=== PATIENT | male | born 1965 | race Caucasian/White ===

== ENCOUNTER 2016-04-15 11:06 | Outpatient (CLI) | payer MEDICAID | END 2016-04-15 11:07 | disposition home or self-care (01) | DX: E11.9 Type 2 diabetes mellitus without complications (principal) ==

== ENCOUNTER 2016-04-29 19:08 | Emergency (ER) | payer MEDICAID ==
[2016-04-29] MEDS ORDERED: OLANZapine ODT 5 MG TABLET TL ONE (22:35)
[2016-04-29] MEDS ORDERED: INSULIN REGULAR HUMAN 100 UNIT/1 ML 10 ML MDV IVP STA (22:35)
[2016-04-29] MEDS ORDERED: LORazepam 0.5 MG TABLET PO STA (22:36)
[2016-04-29] MEDS ORDERED: LORazepam 0.5 MG TABLET ONE (22:43)
[2016-04-29] MEDS ORDERED: INSULIN REGULAR HUMAN 100 UNIT/1 ML 10 ML MDV ONE (22:44)
[2016-04-29] MEDS ORDERED: SODIUM CHLORIDE FLUSH 0.9% 10 ML SYRINGE IVP ONE (23:00)
== END 2016-04-29 23:49 | disposition home or self-care (01) ==
DX: F20.9 Schizophrenia, unspecified (principal); Z91.14 Patient's other noncompliance with medication regimen; I10 Essential (primary) hypertension; Z79.84 Long term (current) use of oral hypoglycemic drugs; Z87.891 Personal history of nicotine dependence; E11.65 Type 2 diabetes mellitus with hyperglycemia; Z79.4 Long term (current) use of insulin
CPT/HCPCS: 36415; 80053; 80306; 80320; 81003; 83690; 85025; 99284; A9270; J1815

== ENCOUNTER 2016-07-04 14:08 | Emergency (ER) | payer MEDICAID ==
[2016-07-04] MEDS ORDERED: SODIUM CHLORIDE 0.9% 1,000 ML IV ONE ×2 (15:07→17:27)
== END 2016-07-04 20:53 | disposition home or self-care (01) ==
DX: E86.0 Dehydration (principal); R53.1 Weakness; J32.0 Chronic maxillary sinusitis; E11.42 Type 2 diabetes mellitus with diabetic polyneuropathy; Z79.84 Long term (current) use of oral hypoglycemic drugs; I10 Essential (primary) hypertension; F20.9 Schizophrenia, unspecified; Z87.891 Personal history of nicotine dependence

== ENCOUNTER 2016-08-10 14:10 | Outpatient (CLI) | payer MEDICAID ==
[2016-08-10 14:48] LABS: ALBUMIN/GLOBULIN RATIO 1.1 (1.0-2.2); BILIRUBIN,TOTAL 0.5 mg/dL (0.2-1.0); CALCIUM 9.5 mg/dL (8.5-10.3); POTASSIUM 4.3 mmol/L (3.5-5.0)
== END 2016-08-10 14:11 | disposition home or self-care (01) ==
LOC: LAB 14:10
PROVIDERS: ATTEND Family Medicine
DX: G45.4 Transient global amnesia (principal)
CPT/HCPCS: 36415; 80053; 82043; 83036

== ENCOUNTER 2016-10-29 10:41 | Outpatient (CLI) | payer MEDICAID ==
[2016-10-29 11:53] LABS: ALBUMIN/GLOBULIN RATIO 1.2 (1.0-2.2); BILIRUBIN,TOTAL 0.5 mg/dL (0.2-1.0); CALCIUM 9.7 mg/dL (8.5-10.3); CREATININE 0.9 mg/dL (0.6-1.2); POTASSIUM 4.4 mmol/L (3.5-5.0); TOTAL PROTEIN 7.2 g/dL (6.7-8.2)
[2016-10-29 12:05] LABS: HEMOGLOBIN A1C 0.98 g/dL
== END 2016-10-29 10:42 | disposition home or self-care (01) ==
LOC: LAB 10:41
PROVIDERS: ATTEND Family Medicine
DX: E11.9 Type 2 diabetes mellitus without complications (principal)
CPT/HCPCS: 36415; 80053; 82043; 83036

== ENCOUNTER 2017-04-15 13:28 | Outpatient (CLI) | payer MEDICAID | END 2017-04-15 13:29 | disposition critical access hospital (66) | LOC: EMS 13:28 | PROVIDERS: ATTEND Surgery | DX: R45.851 Suicidal ideations (principal); Z72.89 Other problems related to lifestyle | CPT/HCPCS: A0425; A0429 ==

== ENCOUNTER 2017-04-15 14:12 | Emergency (ER) | payer MEDICAID ==
[2017-04-15 14:24] VITALS: BP 134/88
--- NOTE | 2017-04-15 14:56 | ED Physician Documentation ---
PD HPI MHE - Stated complaint Stated Complaint: SI - Chief complaint Chief Complaint: MHE - History obtained from History obtained from: Patient, EMS - History of Present Illness Primary symptom: Other (51-year-old gentleman presents by ambulance for potential suicidal ideation. He says that for the last several months he has been having issues with insurance and has not had any of his medications and call Dr. Alvarado's office today to voice his frustrations. In contrast to the nurse's notes he says he is just frustrated and has not made any suicidal statements or had any thoughts of that. He is intoxicated.) Review of Systems Ten Systems: 10 systems reviewed and negative Constitutional: denies: Fever, Chills Cardiac: reports: Reviewed and negative Respiratory: reports: Reviewed and negative PD PAST MEDICAL HISTORY - Past Medical History Past Medical History: Yes Cardiovascular: Hypertension Respiratory: Shortness of breath, Sleep apnea Neuro: Headache/migraine, Peripheral neuropathy, Tremors Endocrine/Autoimmune: Type 2 diabetes GI: GERD HEENT: Chronic vision loss, Chronic hearing loss Psych: Depression, Anxiety, Schizophrenia Musculoskeletal: Chronic back pain - Past Surgical History Past Surgical History: No - Present Medications Home Medications: Ambulatory Orders Medication Instructions Recorded Confirmed Metformin HCl [Metformin HCl ER] 750 mg PO BID 02/04/15 04/29/16 Propranolol ER [Inderal LA] 60 mg PO DAILY 02/04/15 04/29/16 hydroCHLOROthiazide 12.5 mg PO DAILY 02/04/15 04/29/16 [Hydrochlorothiazide] Hydroxyzine Pamoate [Vistaril] 04/29/16 Omeprazole [PriLOSEC] 20 mg PO DAILY 04/29/16 04/29/16 SITagliptin [Januvia] 100 mg PO DAILY 04/29/16 04/29/16 Hydrocodone/Acetaminophen [Vicodin 1 tab ORAL Q4H PRN 07/04/16 07/04/16 5-300 mg Tablet] LORazepam [Ativan] 1 mg ORAL QID PRN 07/04/16 07/04/16 Penicillin Vk 500 mg ORAL Q6H 07/04/16 07/04/16 - Allergies Allergies/Adverse Reactions: Allergies Allergy/AdvReac Type Severity Reaction Status Date / Time No Known Drug Allergies Allergy Verified 07/04/16 14:15 - Social History Does the pt smoke?: No Smoking Status: Never smoker Does the pt drink ETOH?: No Does the pt have substance abuse?: No - Immunizations Immunizations are current?: Yes PD ED PE NORMAL - Vitals Vital signs reviewed: Yes - General General: Alert and oriented X 3, No acute distress, Other (Cogent but slow slurred speech, cooperative though) - HEENT HEENT: PERRL, EOMI - Neck Neck: Supple, no meningeal sign, No bony TTP - Cardiac Cardiac: RRR, No murmur - Respiratory Respiratory: No respiratory distress, Clear bilaterally - Abdomen Abdomen: Normal bowel sounds, Soft, Non tender - Back Back: No CVA TTP, No spinal TTP - Derm Derm: Normal color, Warm and dry - Extremities Extremities: No edema, No calf tenderness / cord - Neuro Neuro: Alert and oriented X 3, Normal speech Eye Opening: Spontaneous Motor: Obeys Commands - Psych Psych: Normal mood, Normal affect Results - Vitals Vitals: Vital Signs - 24 hr 04/15/17 14:20 Temperature 36.9 C Heart Rate 113 H Respiratory 14 Rate Blood Pressure 134/88 H O2 Saturation 96 Oxygen O2 Source Room air - Labs Labs: Laboratory Tests 04/15/17 04/15/17 15:00 15:00 WBC 10.6 RBC 5.24 Hgb 16.1 Hct 46.8 MCV 89.2 MCH 30.7 MCHC 34.5 RDW 17.3 H Plt Count 245 MPV 6.8 L Neut # 6.8 H Lymph # 3.0 Faulk # 0.7 Eos # 0.1 Baso # 0.1 Absolute Nucleated RBC 0.01 Nucleated RBC % 0.1 Sodium 134 L Potassium 3.3 L Chloride 95 L Carbon Dioxide 22 Anion Gap 17.0 H BUN 6 Creatinine 1.2 Estimated GFR (MDRD) 63 L Glucose 161 H Calcium 8.0 L Total Bilirubin 1.0 AST 146 H ALT 106 H Alkaline Phosphatase 86 Total Protein 7.7 Albumin 4.2 Globulin 3.5 Albumin/Globulin Ratio 1.2 Lipase 44 Salicylates < 6.0 Acetaminophen < 10 L Ethyl Alcohol 333.2 PD MEDICAL DECISION MAKING - ED course ED course: 51-year-old gentleman presents without suicidal ideation but with grief reaction surrounding medical issues and lack of insurance. He was observed for several hours given his alcohol intoxication and was persistently not suicidal and repeated questioning. Departure - Departure Disposition: 01 Home, Self Care Clinical Impression: Depressive disorder Alcoholic intoxication Qualifiers: Complication of substance-induced condition: uncomplicated Qualified Code(s): F10.920 - Alcohol use, unspecified with intoxication, uncomplicated Condition: Good Record reviewed to determine appropriate education?: Yes Instructions: ED Depression, ED Alcohol Intoxication Comments: You need to refrain from using alcohol, your liver is being damaged by this and there is evidence of this on your labs today. Return if you are suicidal or need other medical care. Follow-up with your physician.
[2017-04-15 15:15] LABS: BASOPHILS # (AUTO) 0.1 10^3/uL (0.0-0.1); BASOPHILS % (AUTO) 0.8 %; EOSINOPHILS # (AUTO) 0.1 10^3/uL (0.0-0.7); EOSINOPHILS % (AUTO) 0.9 %; HGB - HEMOGLOBIN 16.1 g/dL (14.0-18.0); MEAN CORPUSCULAR HEMOGLOBIN 30.7 pg (27.0-31.0); MEAN CORPUSCULAR HGB CONC 34.5 g/dL (32.0-36.0); MEAN CORPUSCULAR VOLUME 89.2 fL (80.0-94.0); MEAN PLATELET VOLUME 6.8 fL (7.4-11.4); MONOCYTES # (AUTO) 0.7 10^3/uL (0.0-1.0); MONOCYTES % (AUTO) 6.5 %; NEUTROPHILS # (AUTO) 6.8 10^3/uL (1.5-6.6); NEUTROPHILS % (AUTO) 63.8 %; PLT - PLATELET COUNT 245 10^3/uL (130-450); RED BLOOD COUNT 5.24 10^6/uL (4.70-6.10); RED CELL DISTRIBUTION WIDTH 17.3 % (12.0-15.0); WHITE BLOOD COUNT 10.6 x10^3/uL (4.8-10.8)
[2017-04-15 15:41] LABS: ALBUMIN 4.2 g/dL (3.2-5.5); ALBUMIN/GLOBULIN RATIO 1.2 (1.0-2.2); ALKALINE PHOSPHATASE 86 IU/L (42-121); ALT ALANINE AMINOTRANSFERASE 106 IU/L (10-60); AST ASPARTATE AMINOTRANSFERASE 146 IU/L (10-42); BUN - BLOOD UREA NITROGEN 6 mg/dL (6-20); CARBON DIOXIDE - CO2 22 mmol/L (21-32); CHLORIDE 95 mmol/L (101-111); CREATININE 1.2 mg/dL (0.6-1.2); GFR - MDRD 63 (>89); GLUCOSE 161 mg/dL (70-100); LIPASE 44 U/L (22-51); SALICYLATE < 6.0 mg/dL; SODIUM 134 mmol/L (135-145); TOTAL PROTEIN 7.7 g/dL (6.7-8.2)
[2017-04-15 15:45] LABS: ACETAMINOPHEN < 10 ug/mL (10-30)
== END 2017-04-15 17:07 | disposition home or self-care (01) ==
LOC: EDUNIT# → ED 14:12
DX: F32.9 Major depressive disorder, single episode, unspecified (principal); R45.851 Suicidal ideations; F10.129 Alcohol abuse with intoxication, unspecified; I10 Essential (primary) hypertension; E11.42 Type 2 diabetes mellitus with diabetic polyneuropathy; Z79.84 Long term (current) use of oral hypoglycemic drugs; K21.9 Gastro-esophageal reflux disease without esophagitis
CPT/HCPCS: 36415; 80053; 80307; 80320; 80329; 83690; 85025; 99283

== ENCOUNTER 2017-04-16 01:38 | Outpatient (CLI) | payer MEDICAID | END 2017-04-16 01:39 | disposition critical access hospital (66) | LOC: EMS 01:38 | PROVIDERS: ATTEND Surgery | DX: R46.4 Slowness and poor responsiveness (principal); Z72.89 Other problems related to lifestyle | CPT/HCPCS: A0425; A0429 ==

== ENCOUNTER 2017-04-16 02:40 | Inpatient (IN) | payer MEDICAID ==
[2017-04-16] MEDS ORDERED: SODIUM CHLORIDE 0.9% 1,000 ML IV ONE ×4 (02:47→04:31)
--- NOTE | 2017-04-16 02:56 | ED Physician Documentation ---
PD HPI ALTERED MENTAL STATUS - Stated complaint Stated Complaint: ETOH - History obtained from History obtained from: EMS - History of Present Illness Timing - onset: Today Timing - details: Still present Quality / character: Less responsive, Unresponsive Contributing factors: Intoxicated, Substance abuse, Known psych illness Treatment DIRECTOR FINANCIAL ANALYSIS: Accucheck Similar symptoms before: Work up / diagnostics Recently seen: Not recently seen - Additional information Additional information: Patient is a 51 year old obese male with a history of alcohol abuse, diabetes and depression who was brought in by ems for altered mental status. according to ems, someone called in to have the patient checked on (it is unclear who). when they got to the patient's house he was found to be intoxicated. Patient's blood glucose was over 200. While enroute patient "passed out" Upon initial evaluation in the emergency department patient was responsive to pain. Patient was maintaining his airway but likely has sleep apnea. Review of Systems Unable to obtain: Intoxicated PD PAST MEDICAL HISTORY - Past Medical History Cardiovascular: Hypertension Respiratory: Shortness of breath, Sleep apnea Neuro: Headache/migraine, Peripheral neuropathy, Tremors Endocrine/Autoimmune: Type 2 diabetes GI: GERD HEENT: Chronic vision loss, Chronic hearing loss Psych: Depression, Anxiety, Schizophrenia Musculoskeletal: Chronic back pain - Past Surgical History Past Surgical History: No - Present Medications Home Medications: Ambulatory Orders Medication Instructions Recorded Confirmed Metformin HCl [Metformin HCl ER] 750 mg PO BID 02/04/15 04/29/16 Propranolol ER [Inderal LA] 60 mg PO DAILY 02/04/15 04/29/16 hydroCHLOROthiazide 12.5 mg PO DAILY 02/04/15 04/29/16 [Hydrochlorothiazide] Hydroxyzine Pamoate [Vistaril] 04/29/16 Omeprazole [PriLOSEC] 20 mg PO DAILY 04/29/16 04/29/16 SITagliptin [Januvia] 100 mg PO DAILY 04/29/16 04/29/16 Hydrocodone/Acetaminophen [Vicodin 1 tab ORAL Q4H PRN 07/04/16 07/04/16 5-300 mg Tablet] LORazepam [Ativan] 1 mg ORAL QID PRN 07/04/16 07/04/16 Penicillin Vk 500 mg ORAL Q6H 07/04/16 07/04/16 - Allergies Allergies/Adverse Reactions: Allergies Allergy/AdvReac Type Severity Reaction Status Date / Time No Known Drug Allergies Allergy Verified 04/16/17 02:57 - Social History Does the pt smoke?: No Smoking Status: Never smoker Does the pt drink ETOH?: No Does the pt have substance abuse?: No - Immunizations Immunizations are current?: Yes PD ED PE NORMAL - HEENT HEENT: Atraumatic PD ED PE EXPANDED - General General: Disheveled, poorly kept - Respiratory Respiratory: Other (sonorous respirations) - Abdomen Abdomen: Other (obese,umbilical hernia) - Neuro Neuro: Other (minimally responsive) - GCS Eye Opening: To Pain Motor: Localizes to Pain Verbal: Incomprehensible Total: 9 Results - Vitals Vitals: Vital Signs - 24 hr 04/16/17 04/16/17 04/16/17 02:44 03:14 03:30 Temperature 36.3 C L Heart Rate 133 H 131 H 132 H Respiratory 22 24 30 H Rate Blood Pressure 96/76 102/78 77/45 L O2 Saturation 80 L 94 94 04/16/17 04/16/17 04/16/17 03:36 03:47 03:51 Temperature Heart Rate 119 H 118 H Respiratory 28 H Rate Blood Pressure 79/40 L 81/57 L 77/47 L O2 Saturation 91 L 04/16/17 04/16/17 04/16/17 03:54 04:00 04:02 Temperature Heart Rate 113 H 118 H 117 H Respiratory 25 H 27 H Rate Blood Pressure 89/54 L 83/63 L 83/63 L O2 Saturation 97 04/16/17 04/16/17 04/16/17 04:10 04:14 04:28 Temperature Heart Rate 117 H 121 H 124 H Respiratory 30 H 24 18 Rate Blood Pressure 104/55 L 111/60 97/58 L O2 Saturation 97 97 82 L 04/16/17 04/16/17 04/16/17 04:33 04:41 04:48 Temperature Heart Rate 121 H 118 H 118 H Respiratory 25 H 28 H Rate Blood Pressure 82/48 L 93/70 91/66 O2 Saturation 97 98 Oxygen O2 Source Non-rebreather mask - EKG (time done) 0259 Rate: Rate (enter#) (139) Rhythm: Sinus tachycardia [place]: Normal QRS: Normal Ischemia: ST depression Compare to prior EKG: Changed from prior EKG - Labs Labs: Laboratory Tests 04/16/17 04/16/17 04/16/17 02:58 02:58 02:58 WBC 6.5 RBC 4.80 Hgb 14.9 Hct 43.5 MCV 90.7 MCH 31.0 MCHC 34.1 RDW 17.4 H Plt Count 157 MPV 7.1 L Neut # 2.7 Lymph # 3.0 Cottle # 0.6 Eos # 0.1 Baso # 0.0 Absolute Nucleated RBC 0.00 Nucleated RBC % 0.0 Bld Gas Analysis Time Sample Site ABG pH ABG pCO2 ABG pO2 ABG HCO3 ABG Total CO2 ABG O2 Saturation ABG Oximetry Spot Check ABG Base Excess Abdirashid Test O2 Delivery Device O2 Liters/Min Sodium 134 L Potassium 3.1 L Chloride 95 L Carbon Dioxide 21 Anion Gap 18.0 H BUN 10 Creatinine 1.5 H Estimated GFR (MDRD) 49 L Glucose 226 H Lactic Acid Calcium 8.3 L Phosphorus 4.7 H Magnesium 1.6 L Total Bilirubin 0.5 AST 218 H ALT 134 H Alkaline Phosphatase 80 Ammonia 24.5 Total Protein 7.5 Albumin 4.0 Globulin 3.5 Albumin/Globulin Ratio 1.1 Lipase 51 Urine Color Urine Clarity Urine pH Ur Specific [place] Urine Protein Urine Glucose (UA) Urine Ketones Urine Occult Blood Urine Nitrite Urine Bilirubin Urine Urobilinogen Ur Leukocyte Esterase Ur Microscopic Review Urine Culture Comments Salicylates < 6.0 Urine Opiates Screen Ur Oxycodone Screen Urine Methadone Screen Ur Propoxyphene Screen Acetaminophen < 10 L Ur Barbiturates Screen Ur Tricyclics Screen Ur Phencyclidine Scrn Ur Amphetamine Screen U Methamphetamines Scrn U Benzodiazepines Scrn Urine Cocaine Screen U Cannabinoids Screen Ethyl Alcohol 311.1 Serum Ketones 04/16/17 04/16/17 04/16/17 02:58 03:00 03:40 WBC RBC Hgb Hct MCV MCH MCHC RDW Plt Count MPV Neut # Lymph # Cottle # Eos # Baso # Absolute Nucleated RBC Nucleated RBC % Bld Gas Analysis Time 0359 Sample Site LEFT RADIAL ABG pH 7.29 L ABG pCO2 45 ABG pO2 78 L ABG HCO3 20.8 L ABG Total CO2 22.2 ABG O2 Saturation 93 L ABG Oximetry Spot Check 96 ABG Base Excess -5.7 L Abdirashid Test POSITIVE O2 Delivery Device NON REBREATHER MASK O2 Liters/Min 15.00 Sodium Potassium Chloride Carbon Dioxide Anion Gap BUN Creatinine Estimated GFR (MDRD) Glucose Lactic Acid 3.9 H* Calcium Phosphorus Magnesium Total Bilirubin AST ALT Alkaline Phosphatase Ammonia Total Protein Albumin Globulin Albumin/Globulin Ratio Lipase Urine Color YELLOW Urine Clarity CLEAR Urine pH 6.0 Ur Specific [place] 1.015 Urine Protein NEGATIVE Urine Glucose (UA) 250 H Urine Ketones NEGATIVE Urine Occult Blood NEGATIVE Urine Nitrite NEGATIVE Urine Bilirubin NEGATIVE Urine Urobilinogen 0.2 (NORMAL) Ur Leukocyte Esterase NEGATIVE Ur Microscopic Review NOT INDICATED Urine Culture Comments NOT INDICATED Salicylates Urine Opiates Screen NEGATIVE Ur Oxycodone Screen NEGATIVE Urine Methadone Screen NEGATIVE Ur Propoxyphene Screen NEGATIVE Acetaminophen Ur Barbiturates Screen NEGATIVE Ur Tricyclics Screen NEGATIVE Ur Phencyclidine Scrn NEGATIVE Ur Amphetamine Screen NEGATIVE U Methamphetamines Scrn NEGATIVE U Benzodiazepines Scrn NEGATIVE Urine Cocaine Screen NEGATIVE U Cannabinoids Screen NEGATIVE Ethyl Alcohol Serum Ketones 04/16/17 03:58 WBC RBC Hgb Hct MCV MCH MCHC RDW Plt Count MPV Neut # Lymph # Cottle # Eos # Baso # Absolute Nucleated RBC Nucleated RBC % Bld Gas Analysis Time Sample Site ABG pH ABG pCO2 ABG pO2 ABG HCO3 ABG Total CO2 ABG O2 Saturation ABG Oximetry Spot Check ABG Base Excess Abdirashid Test O2 Delivery Device O2 Liters/Min Sodium Potassium Chloride Carbon Dioxide Anion Gap BUN Creatinine Estimated GFR (MDRD) Glucose Lactic Acid Calcium Phosphorus Magnesium Total Bilirubin AST ALT Alkaline Phosphatase Ammonia Total Protein Albumin Globulin Albumin/Globulin Ratio Lipase Urine Color Urine Clarity Urine pH Ur Specific [place] Urine Protein Urine Glucose (UA) Urine Ketones Urine Occult Blood Urine Nitrite Urine Bilirubin Urine Urobilinogen Ur Leukocyte Esterase Ur Microscopic Review Urine Culture Comments Salicylates Urine Opiates Screen Ur Oxycodone Screen Urine Methadone Screen Ur Propoxyphene Screen Acetaminophen Ur Barbiturates Screen Ur Tricyclics Screen Ur Phencyclidine Scrn Ur Amphetamine Screen U Methamphetamines Scrn U Benzodiazepines Scrn Urine Cocaine Screen U Cannabinoids Screen Ethyl Alcohol Serum Ketones NEGATIVE - Rads (name of study) chest x-ray Radiology: Final report received (no acute process appreciated, hypovolemia) PD MEDICAL DECISION MAKING - ED course Complexity details: reviewed old records, reviewed results, re-evaluated patient , considered differential, d/w patient ED course: Patient was seen and examined at bedside. patient was placed on a monitor and was found to be tachycardic and hypotensive and hypoxic. IV access was gained and labs were drawn. Patient was placed on supplemental oxygen. ekg was performed and showed sinus tach. previous notes were reviewed and patient was found to have been in the ED yesterday for alcohol intoxication. Patient became more somnolent but would maintain his oxygenation with a non-rebreather. Patient was treated with a two fluid bolus which help improve his tachycardia and hypotension. Hospitalist was contacted and the case was discussed with her at bedside. It was decided to hold off on intubation as patient's symptoms were likely secondary to alcohol and his blood gas showed good oxygenation without CO2 retention. Patient was admitted to the ICU with two large bore IVs , maps in the 70s and oxygen saturation in the high 90s on a non rebreather. - Critical Care Time(min): 30 Time Includes: Direct patient care, Review records, Reassess patient Data interpretation: ABG, CXR, Prior EKG, Cardiac output Departure - Departure Disposition: 66 [facility] DC/Xfer Clinical Impression: Altered mental status, Hypotension Condition: Critical
[2017-04-16 03:05] LABS: BASOPHILS % (AUTO) 0.6 %; EOSINOPHILS # (AUTO) 0.1 10^3/uL (0.0-0.7); EOSINOPHILS % (AUTO) 1.9 %; HGB - HEMOGLOBIN 14.9 g/dL (14.0-18.0); LYMPHOCYTES % (AUTO) 46.9 %; MEAN CORPUSCULAR HGB CONC 34.1 g/dL (32.0-36.0); MEAN CORPUSCULAR VOLUME 90.7 fL (80.0-94.0); MEAN PLATELET VOLUME 7.1 fL (7.4-11.4); MONOCYTES # (AUTO) 0.6 10^3/uL (0.0-1.0); MONOCYTES % (AUTO) 9.3 %; NEUTROPHILS # (AUTO) 2.7 10^3/uL (1.5-6.6); NEUTROPHILS % (AUTO) 41.3 %; PLT - PLATELET COUNT 157 10^3/uL (130-450); RED CELL DISTRIBUTION WIDTH 17.4 % (12.0-15.0); WHITE BLOOD COUNT 6.5 x10^3/uL (4.8-10.8)
[2017-04-16 03:21] LABS: BILIRUBIN,URINE NEGATIVE (NEGATIVE); GLUCOSE, URINE (UA) 250 mg/dL (NEGATIVE); KETONES,URINE (UA) NEGATIVE (NEGATIVE); LEUKOCYTE ESTERASE, URINE NEGATIVE (NEGATIVE); MUDS CUTOFF CONCENTRATIONS CUTOFF CONC BELOW:; NITRITE,URINE NEGATIVE (NEGATIVE); OCCULT BLOOD,URINE NEGATIVE (NEGATIVE); PROTEIN,URINE NEGATIVE (NEGATIVE); UROBILINOGEN,URINE 0.2 (NORMAL) E.U./dL (NORMAL)
[2017-04-16 03:21] LABS: ALBUMIN/GLOBULIN RATIO 1.1 (1.0-2.2); ALKALINE PHOSPHATASE 80 IU/L (42-121); ALT ALANINE AMINOTRANSFERASE 134 IU/L (10-60); AST ASPARTATE AMINOTRANSFERASE 218 IU/L (10-42); BILIRUBIN,TOTAL 0.5 mg/dL (0.2-1.0); BUN - BLOOD UREA NITROGEN 10 mg/dL (6-20); CALCIUM 8.3 mg/dL (8.5-10.3); CARBON DIOXIDE - CO2 21 mmol/L (21-32); CHLORIDE 95 mmol/L (101-111); CREATININE 1.5 mg/dL (0.6-1.2); GFR - MDRD 49 (>89); GLUCOSE 226 mg/dL (70-100); LIPASE 51 U/L (22-51); MAGNESIUM 1.6 mg/dL (1.7-2.8); PHOSPHORUS 4.7 mg/dL (2.5-4.6); SALICYLATE < 6.0 mg/dL; SODIUM 134 mmol/L (135-145); TOTAL PROTEIN 7.5 g/dL (6.7-8.2)
[2017-04-16 03:25] LABS: ACETAMINOPHEN < 10 ug/mL (10-30)
[2017-04-16 03:28] LABS: CLARITY,URINE CLEAR (CLEAR)
[2017-04-16 03:31] LABS: AMPHETAMINE SCREEN,URINE NEGATIVE (NEGATIVE); BENZODIAZEPINES SCREEN, URINE NEGATIVE (NEGATIVE); COCAINE SCREEN URINE NEGATIVE (NEGATIVE); METHADONE SCREEN, URINE NEGATIVE (NEGATIVE); METHAMPHETAMINES SCREEN, URINE NEGATIVE (NEGATIVE); OPIATE SCREEN, URINE NEGATIVE (NEGATIVE); OXYCODONE SCREEN, URINE NEGATIVE (NEGATIVE); PROPOXYPHENE SCREEN, URINE NEGATIVE (NEGATIVE); TRICYCLIC ANTIDEPRESSANT,URINE NEGATIVE (NEGATIVE)
--- NOTE | 2017-04-16 03:50 | XRAY Report ---
EXAM: CHEST RADIOGRAPHY EXAM DATE: 04/16/2017 03:32 AM. CLINICAL HISTORY: Hypoxia. COMPARISON: 07/04/2016. TECHNIQUE: 1 view. FINDINGS: Lungs/Pleura: Low volumes. No focal opacities evident. No gross pneumothorax or large effusion. Mediastinum: Borderline cardiomegaly. No mediastinal shift. Other: None. IMPRESSION: Hypoventilatory single view chest with borderline cardiomegaly but without definite acute process. [facility] Referring Provider Line: [phone] SITE ID: [id number]
[2017-04-16 04:21] LABS: ABG BASE EXCESS -5.7 mmol/L (-2.0-3.0); ABG HCO3 20.8 mmol/L (22.0-26.0); ABG PCO2 45 mmHg (34-45); ABG PH 7.29 (7.35-7.45); ABG PO2 78 mmHg (80-100); ABG TCO2 22.2 MMOL/L (21.0-29.0)
[2017-04-16 04:22] LABS: ABG OXYGEN SATURATION 93 % (94-98); ALLEN TEST POSITIVE
[2017-04-16] MEDS ORDERED: MAGNESIUM SULFATE 2 GRAM 2 GM/50 ML BAG IV SCH (04:31)
[2017-04-16] MEDS ORDERED: POTASSIUM CHLOR 10 MEQ/100 ML 10 MEQ/100 ML BAG IV SCH (04:32)
[2017-04-16] MEDS ORDERED: SODIUM CHLORIDE FLUSH 0.9% 10 ML SYRINGE IVP PRN (04:36)
[2017-04-16] MEDS ORDERED: ONDANSETRON 4 MG/2 ML VIAL IVP PRN (04:36)
[2017-04-16] MEDS ORDERED: IPRATROPIUM 0.2 MG/ML NEB INH PRN (04:36)
[2017-04-16] MEDS ORDERED: INSULIN REGULAR HUMAN 100 UNIT in SODIUM CHLORIDE 0.9% 100ML 99 ML IV SCH ×2 (05:00→08:30)
[2017-04-16] MEDS ORDERED: SODIUM CHLORIDE 0.9% 1,000 ML IV SCH (05:00)
[2017-04-16 05:16] LABS: CALCIUM 7.1 mg/dL (8.5-10.3); CREATININE 1.3 mg/dL (0.6-1.2)
--- NOTE | 2017-04-16 05:35 | CT Preliminary Report ---
Exam: CT HEAD W/O IMPRESSION: No acute intracranial process. [facility] SITE ID: [id number]
--- NOTE | 2017-04-16 05:38 | CT Report ---
EXAM: CT HEAD EXAM DATE: 04/16/2017 05:21 AM. CLINICAL HISTORY: Altered mental status. COMPARISON: Brain CT from 12/19/2015. TECHNIQUE: Multiaxial CT images were obtained from the foramen magnum to the vertex. Reformats: Coron al. IV contrast: None. In accordance with CT protocol optimization, one or more of the following dose reduction techniques w ere utilized for this exam: automated exposure control, adjustment of mA and/or KV based on patient s ize, or use of iterative reconstructive technique. FINDINGS: Parenchyma: No intraparenchymal hemorrhage. No evidence of mass, midline shift, or CT findings of inf arction. Knott-white differentiation is distinct. Extraaxial Spaces: Normal for age. No subdural or epidural collections identified. Ventricles: Normal in size and position. Sinuses and Orbits: There is mild mucosal thickening in the right maxillary sinus. Mild opacity in th e left petrous apex persists. The orbits are unremarkable. Bones: No evidence of fracture or calvarial defect. IMPRESSION: No acute intracranial process. [facility] Referring Provider Line: [phone] SITE ID: [id number]
[2017-04-16 05:57] LABS: INR 0.9 (0.8-1.2); PT - PROTHROMBIN TIME 10.7 secs (9.9-12.6)
--- NOTE | 2017-04-16 06:07 | HISTORY & PHYSICAL EXAMINATION ---
DATE OF SERVICE: 04/16/2017 Physician: Carrie Jeong MD CHIEF COMPLAINT: Altered mental status, alcohol intoxication and respiratory failure. SOURCE OF HISTORY: Per medical records and per ER report, the patient on admission was obtunded, could not provide a history. HISTORY OF PRESENT ILLNESS: The patient is a 51-year-old, unfortunate, white male with past medical history of obesity, obstructive sleep apnea, hypertension, type 2 diabetes, anxiety, depression and schizophrenia. He also has chronic low back pain. In the past, he had been taking: Lorazepam, Vicodin, Propranolol, Metformin, Januvia and Hydrochlorothiazide. However, recently, about a few months ago, he lost his insurance and could not fill his medications. His primary care physician is Dr. Alvarado. The patient was seen in the ER yesterday on the afternoon of April 15, at which time he complained about depression, possibly suicidal ideation, was found with alcohol intoxication with blood alcohol level around 300. He reported to the ER doctor that he has not taken his medications at least for a month due to insurance issues. He contacted his primary care doctor, voiced his frustration. At the ER, he initially was suicidal; however, later on his mental status was found to be stable enough and he denied suicidal issues. On the evening of 04/15/2017, he was discharged home. Subsequently, in the evening, a third republican check was requested and when the patient sounded with altered speech on the phone, EMS was called to check on him. When EMS arrived, the patient opened the door; however, he looked intoxicated and altered with his mentation. He was drinking apple juice mixed with vodka and he was drinking it from a large bowl. Due to his altered mentation, EMS brought him into the ER. However, during the transfer patient became obtunded and when he arrived to the ER, he was critically ill, had numerous issues. In particular, he was tachycardic with a heart rate around 140. EKG showed sinus tachycardia with rate dependent changes. The patient was initially hypotensive with blood pressure of 80 systolic. After 2 liters normal saline his blood pressure came up to the low 100 range. He was obtunded and required a nonrebreather mask. On that, ABG showed 7.29/44/ 77. Blood alcohol level was above 300. Magnesium was 1.6, potassium was 3.1, creatinine was 1.5, notably baseline creatinine is 0.9. Anion gap was 18, blood glucose was 266. Lactic acid was 3.9. Chest x-ray showed hypoventilation, otherwise unremarkable. Liver function tests were slightly abnormal in the 100-200 range. In particular, AST was 218, ALT was 134. Ammonia level was 24. Toxicology screen was negative for all substances, including Tylenol and salicylate. White blood cell count was normal. Hemoglobin was normal as well. I examined this patient in the ER and discussed his case with the ER physician, Dr. Gregory. At the time I was at the bedside, the patient was on nonrebreather mask. He saturated 97%. Airway protection was borderline and possibility of intubation was discussed. Vital signs were improving, as far as heart rate went down from 140 to 120 and blood pressure increased from 80 to 100 systolic. Neurologically, the patient appeared nonfocal. Did not appear with any musculoskeletal injury. PAST MEDICAL HISTORY 1. Hypertension. 2. Obstructive sleep apnea/obesity hypoventilation. 3. Type 2 diabetes, noninsulin dependent. 4. Neuropathy. 5. Headache/migraine 6. History of tremors, unknown details. 7. Chronic low back pain. 8. Mental health issues including anxiety, depression, and schizophrenia. 9. Recent history of alcohol use. OUTPATIENT MEDICATIONS: Past medications listed in the electronic medical record, which I reviewed and listed at history of present illness. Notably, during the past several weeks to a month, the patient did not take outpatient medications. SOCIAL HISTORY: Recently, the patient had been drinking alcohol. On admission , he was obtunded and I could not obtain further social history. FAMILY HISTORY: The patient could not provide due to altered mental status. REVIEW OF SYMPTOMS: The patient could not provide due to altered mental status. PHYSICAL EXAMINATION VITAL SIGNS: Please see listed above at of present illness. GENERAL: The patient is a well-developed, obese male who was obtunded. NEUROLOGIC: Depressed mental status, obtunded, unresponsive. Airway protection was borderline. The patient was snoring, did have a gag reflex, was neurologically nonfocal. PSYCHIATRIC: Obtunded. RESPIRATORY: Hypoventilation. Respiratory rate between 10 and 15. Maintained oxygen saturation in the high 90s on nonrebreather mask. Airway protection was borderline, as mentioned above, LUNGS: Showed no wheezing, no crackling. There was decreased air entry. ABDOMEN: Obese, distended. With a sizable umbilical hernia. Bowel tones present. No rebound LYMPHATIC: No significant lymphedema. MUSCULOSKELETAL: No obvious injury. SKIN: Macerated skin on the feet. Large toenails. No obvious wound or rash. CARDIOVASCULAR: S1, S2. Regular, tachycardia. I could not hear murmur, rub or gallop. ASSESSMENT AND PLAN/ACTIVE ISSUE/DIAGNOSES 1. Acute alcohol intoxication leading to multiple complications, see below. 2. Encephalopathy/altered mental status/obtunded secondary to mental status depression, with alcohol on board. Notably, there were no other substances. Tox screen was negative. 3. Respiratory failure secondary to alcohol intoxication, currently with borderline airway protection, might need to be intubated. I discussed this issue with the ER physician and we agreed that the patient will be monitored on a nonrebreather mask for another hour or so and if the mental status does not improve or if there is concern with the airway protection, then we will consider intubation. Regarding possible BiPAP, for an obtunded patient, the aspiration risk and distending the stomach with air would be too high of a risk. Therefore, we will try not to use BiPAP. 4. Mixed acid base disorder including metabolic acidosis secondary to lactic acidosis and possible early diabetic ketoacidosis. 5. Hypotension secondary to alcohol intoxication, improving on IV hydration. 6. Sinus tachycardia, multifactorial, secondary to dehydration, could be secondary to withdrawal from multiple medications including beta blockers, opiates or benzodiazepines; however, withdrawal is somewhat less likely as, per the history, the patient likely was not on these medications recently. Still, acute cardiac ischemia will need to be ruled out. Tachycardia could be secondary to dehydration , alcohol intoxication and metabolic abnormalities. 7. History of type 2 diabetes, recently not on medications. Blood glucose is above 200 with a mild anion gap, could be early DKA versus hyperglycemia with lactic acidosis. 8. Acute renal failure. 9. Electrolyte abnormalities including hypomagnesemia and hypokalemia. 10. Abnormal liver function tests, likely secondary to alcohol-induced liver damage. 11. Macerated feet without obvious cellulitis. 12. Mental health problems. PLAN AND ORDERS 1. Patient is getting admitted to the intensive care unit. He will be closely monitored with nonrebreather mask, we will try to switch oxygen delivery to high flow nasal cannula. If mental status does not improve, the patient will likely need to be intubated. 2. We will recheck lactic acid and blood alcohol level. Notably, the patient was still drinking when EMS arrived on the scene. Therefore, it is possible that blood alcohol level is still increasing. If that is the case, then obviously needing to intubate this patient will be even more likely. 3. Regarding hyperglycemia, possible early DKA, we will start insulin drip and monitor laboratories accordingly. 4. Regarding sinus tachycardia, hypotension, and acute renal failure we will continue IV hydration. Monitor urine output via Patricio catheter. 5. Replace electrolytes. 6. Consider a CT scan of the brain to make sure there is no intracranial abnormality. 7. Telemetry monitoring. EKG showed rate-related changes; however, in the setting of alcohol intoxication and multiple other problems, in particular metabolic abnormalities and beta jordan withdrawal as well, the patient could have acute cardiac ischemia. We will check cardiac markers. 8. GI prophylaxis, DVT prophylaxis; for now with Venodyne boots. If the patient remains in the hospital for more than 24 hours, pharmacologic prophylaxis should be considered. 9. Code status is FULL CODE per default. 10. N.p.o., supportive care, respiratory care, small volume nebulizers. ATTESTATION: I certify in good melodie that the reasonable expectation is this patient will be hospitalized for more than 24-48 hours; however, he is expected to discharge within 96 hours to his home or transfer to another facility. TIME SPENT: Critical care time spent with this patient was 1 hour. TD: 04/16/2017 06:07 TERENCE
[2017-04-16 06:10] LABS: ABG HCO3 19.8 mmol/L (22.0-26.0); ABG PCO2 43 mmHg (34-45); ABG PH 7.28 (7.35-7.45); ABG PO2 202 mmHg (80-100)
[2017-04-16 06:11] LABS: ABG BASE EXCESS -6.7 mmol/L (-2.0-3.0); ABG OXYGEN SATURATION 99 % (94-98); ABG TCO2 21.1 MMOL/L (21.0-29.0)
[2017-04-16 06:20] LABS: ALLEN TEST POSITIVE
[2017-04-16] MEDS: SODIUM CHLORIDE FLUSH 0.9% 10 ML SYRINGE IVP SCH ×3 (06:47→22:05)
[2017-04-16] MEDS: POTASSIUM CHLOR 10 MEQ/100 ML 10 MEQ/100 ML BAG IV SCH ×10 (06:49→14:54)
[2017-04-16 08:48] LABS: CALCIUM 7.2 mg/dL (8.5-10.3)
[2017-04-16] MEDS: SODIUM BICARBONATE 100 MEQ in DEXTROSE 5% 1,000 ML IV SCH ×2 (09:30→20:55)
[2017-04-16 10:59] LABS: CALCIUM 7.2 mg/dL (8.5-10.3)
[2017-04-16] MEDS: FAMOTIDINE 20 MG/50 ML 50 ML IV SCH ×2 (13:00→20:57)
[2017-04-16] MEDS: PROPRANOLOL ER 60 MG CAPSULE PO SCH (16:01)
[2017-04-16 16:05] LABS: CALCIUM 7.5 mg/dL (8.5-10.3); CREATININE 0.9 mg/dL (0.6-1.2)
[2017-04-17 05:05] LABS: BASOPHILS % (AUTO) 0.4 %; EOSINOPHILS # (AUTO) 0.3 10^3/uL (0.0-0.7); EOSINOPHILS % (AUTO) 2.7 %; HGB - HEMOGLOBIN 14.1 g/dL (14.0-18.0); LYMPHOCYTES # (AUTO) 1.7 10^3/uL (1.5-3.5); LYMPHOCYTES % (AUTO) 18.4 %; MEAN CORPUSCULAR HGB CONC 34.3 g/dL (32.0-36.0); MEAN CORPUSCULAR VOLUME 90.5 fL (80.0-94.0); MEAN PLATELET VOLUME 6.9 fL (7.4-11.4); MONOCYTES # (AUTO) 0.5 10^3/uL (0.0-1.0); MONOCYTES % (AUTO) 5.5 %; NEUTROPHILS # (AUTO) 6.9 10^3/uL (1.5-6.6); PLT - PLATELET COUNT 154 10^3/uL (130-450); RED BLOOD COUNT 4.54 10^6/uL (4.70-6.10); RED CELL DISTRIBUTION WIDTH 17.7 % (12.0-15.0); WHITE BLOOD COUNT 9.5 x10^3/uL (4.8-10.8)
[2017-04-17 05:53] LABS: ALBUMIN 3.2 g/dL (3.2-5.5); CALCIUM 7.3 mg/dL (8.5-10.3); MAGNESIUM 1.5 mg/dL (1.7-2.8); PHOSPHORUS 2.6 mg/dL (2.5-4.6)
[2017-04-17] MEDS: SODIUM BICARBONATE 100 MEQ in DEXTROSE 5% 1,000 ML IV SCH (06:49)
[2017-04-17] MEDS: SODIUM CHLORIDE FLUSH 0.9% 10 ML SYRINGE IVP SCH (06:49)
[2017-04-17] MEDS ORDERED: MAGNESIUM OXIDE 400 MG TABLET PO SCH (07:00)
[2017-04-17 07:06] LABS: VBG PH 7.485 (7.31-7.41)
--- NOTE | 2017-04-17 07:18 | Discharge Plan ---
Discharge Plan Disposition: Home, Self Care Condition: Stable Prescriptions: Hydrocodone/Acetaminophen [Vicodin 5-300 mg Tablet] 1 tab ORAL Q4H PRN #30 tablet PRN Reason: Pain Omeprazole [PriLOSEC] 20 mg PO DAILY #30 capsule Propranolol ER [Inderal LA] 60 mg PO DAILY #30 capsule SITagliptin [Januvia] 100 mg PO DAILY #30 tablet Diet: Diabetic Activity Restrictions: Activity as Tolerated Additional Instructions or Follow Up instructions: You were admitted to the hospital because of severe alcohol intoxication resulting in your inability to breathe, and severely disrupting your metabolism. You had several electrolyte abnormalities including mild kidney failure. You were severely acidotic. You came very close to being put on life support. But we were able to stabilize your breathing with a face max called BiPAP. You were aggressively hydrated with normal saline. Your electrolyte abnormalities and your acidosis resolved. Your breathing became normal. I have asked you to stop drinking completely. I have given you 30 days worth of medication prescription. In that time please establish yourself with a new primary care provider if you are unable to see Dr. Alvarado. Social work has given you a list of recovery programs with regards to alcohol abuse. Please contact 1 of those organizations and use their services to help you stop drinking. No Smoking: If you smoke, Please STOP! Call for help. Follow-up with: Juan Ramon Alvarado MD [Provider Admit Priv/Credential] -
[2017-04-17] MEDS ORDERED: CALCIUM CARBONATE CHEW 500 MG TABLET PO SCH (08:00)
[2017-04-17 08:03] VITALS: BP 171/95
[2017-04-17] MEDS: PROPRANOLOL ER 60 MG CAPSULE PO SCH (08:13)
[2017-04-17] MEDS: FAMOTIDINE 20 MG/50 ML 50 ML IV SCH (08:53)
[2017-04-17] MEDS ORDERED: PROPRANOLOL ER 60 MG CAPSULE PO SCH (09:00)
[2017-04-17] MEDS ORDERED: THIAMINE INJ 100 MG, FOLIC ACID INJ 1 MG in SODIUM CHLORIDE 0.9% 100ML 100 ML IV SCH (09:00)
[2017-04-17] MEDS ORDERED: MULTIVITAMIN 10 ML in SODIUM CHLORIDE 0.9% 1,000 ML IV SCH (09:00)
--- NOTE | 2017-04-18 13:57 | DISCHARGE SUMMARY ---
Physician: Fabi Yu MD DATE OF ADMISSION: 04/16/2017 DATE OF DISCHARGE: 04/17/2017 PRIMARY CARE PROVIDER: Juan Ramon Alvarado MD DISCHARGE DIAGNOSES 1. Acute respiratory failure with hypoxemia. 2. Acute encephalopathy. 3. Obtundation. 4. Acute renal failure. 5. Electrolyte abnormality. 6. Metabolic acidosis. 7. Alcohol intoxication with blood level over 0.3. 8. Type 2 diabetes mellitus, uncontrolled, with complications, not on long- term insulin. DISCHARGE MEDICATIONS 1. Hydrochlorothiazide 12.5 mg daily to be held for right now. 2. Vicodin 1 tablet every 6 hours as needed, #30. 3. Ativan 1 mg q.i.d. p.r.n. No prescription. 4. Magnesium oxide 400 mg q. 6 hours. No prescription. 5. Prilosec 20 mg p.o. daily, #30. 6. Propranolol extended release 60 mg daily, #30. 7. Januvia 100 mg p.o. daily, #30. I have asked the patient to please stop metformin. HOSPITAL COURSE: He is a 51-year-old man who ran out of his medications a month ago because of financial circumstances. He is angry with his primary care provider. He feels like he could not get in to see them and came to the emergency room on 04/15/2017. At that time, he was saying that he was going to kill himself because he was having issues with his insurance and not being able to get him medicines. He was evaluated for his grief reaction. He was observed for several hours because he was acutely intoxicated with an alcohol level of 333.2. Once he sobered up, he was no longer suicidal. He was asked to refrain from drinking alcohol and follow up with his physician. Because of his suicidal ideation, there was a welfare check call. When police went to the door, they found him staggering, and had a bowl in his hand filled with apple juice and vodka. He was drinking out of the bowl. As they watched him, the patient started falling over, was intoxicated. They put him in the ambulance and brought him here and as he was coming to the emergency room, developed acute respiratory failure. He was found to have severe metabolic acidosis, alcohol intoxication, with encephalopathy. He was hypotensive. Had sinus tachycardia. Glucose was above 200 with a mild anion gap and he was with elevated BUN and creatinine, as well as hypomagnesemia and hypokalemia. He had abnormal liver function studies secondary to the alcohol-induced liver damage. He was placed in ICU, BiPAP. Almost needed to be intubated. Received aggressive fluid resuscitation. His electrolyte abnormalities were corrected. His glucose was treated. He gradually improved. Anion gap gradually normalized and was no longer needing respiratory support. On the morning of discharge, the patient was stating that he really wanted to go home. He did not want to be here anymore. He stated that he had no intention of killing himself. He only said those things because he was drunk. I have given him a month's worth of most of his medications. I have opted not to refill his benzodiazepine. Because of his recent metabolic acidosis, I have asked him to stop taking metformin. I have asked him to please see his primary care provider, and reestablish that relationship. On the day of discharge, his BMP was normal with a normal anion gap. Random glucose was 120. White cell count was normal, hemoglobin 14.4. He is discharged in stable condition with a temperature of 36.7, pulse 83, blood pressure 171/95, respirations 20. On room air. He was asleep when I examined him, but awoke easily. Mildly hypertensive, but no tachycardia and no tremulousness. Alert. Ate all of his breakfast. Lungs were clear with coarse rhonchi occasionally that cleared with cough. He had a regular rate and rhythm. The abdomen was soft, nontender. He was ambulating in his room. Patricio had been discontinued. Greater than 30 minutes was spent in coordinating discharge, discussing his alcohol abuse, instructing him on his medications. cc: Juan Ramon Alvarado, TD: 04/18/2017 13:56 TERENCE
== END 2017-04-17 09:30 | disposition home or self-care (01) | DRG 896 ==
LOC: EDUNIT# → ED 02:40 → ICU 04:37
PROVIDERS: ADMIT Internal Medicine; ATTEND Specialist
DX: F10.129 Alcohol abuse with intoxication, unspecified (principal); J96.01 Acute respiratory failure with hypoxia; N17.9 Acute kidney failure, unspecified; E87.2 Acidosis; Z68.41 Body mass index [BMI] 40.0-44.9, adult; G31.2 Degeneration of nervous system due to alcohol; Y90.8 Blood alcohol level of 240 mg/100 ml or more; E11.65 Type 2 diabetes mellitus with hyperglycemia; E11.42 Type 2 diabetes mellitus with diabetic polyneuropathy; F41.9 Anxiety disorder, unspecified; F32.9 Major depressive disorder, single episode, unspecified; F20.9 Schizophrenia, unspecified; I95.89 Other hypotension; E83.42 Hypomagnesemia; E87.6 Hypokalemia; E86.0 Dehydration; K70.9 Alcoholic liver disease, unspecified; T44.7X6A Underdosing of beta-adrenoreceptor antagonists, initial encounter; T38.3X6A Underdosing of insulin and oral hypoglycemic [antidiabetic] drugs, initial encounter; T42.4X6A Underdosing of benzodiazepines, initial encounter; T40.2X6A Underdosing of other opioids, initial encounter; T50.2X6A Underdosing of carbonic-anhydrase inhibitors, benzothiadiazides and other diuretics, initial encounter; Z91.120 Patient's intentional underdosing of medication regimen due to financial hardship; Y92.009 Unspecified place in unspecified non-institutional (private) residence as the place of occurrence of the external cause; I10 Essential (primary) hypertension; G47.33 Obstructive sleep apnea (adult) (pediatric); E66.9 Obesity, unspecified; G47.36 Sleep related hypoventilation in conditions classified elsewhere; M54.5 Low back pain; G89.29 Other chronic pain
CPT/HCPCS: 36415; 36600; 51701; 51702; 70450; 71045; 80048; 80053; 80069; 80306; 80307; 80320; 80329; 81001; 81003; 82009; 82140; 82330; 82550; 82553; 82803; 82947; 83605; 83690; 83735; 83880; 84100; 84443; 84484; 85025; 85610; 87086; 87150; 93005; 96360; 96361; 99285; 99291

== ENCOUNTER 2017-05-07 08:23 | Outpatient (CLI) | payer MEDICAID ==
[2017-05-07 12:27] LABS: ALBUMIN/GLOBULIN RATIO 1.1 (1.0-2.2); BILIRUBIN,TOTAL 0.8 mg/dL (0.2-1.0); CREATININE 0.9 mg/dL (0.6-1.2); TOTAL PROTEIN 7.5 g/dL (6.7-8.2)
[2017-05-07 12:54] LABS: HB2 TOTAL 17.3 g/dL; HEMOGLOBIN A1C 0.94 g/dL; HEMOGLOBIN A1C % 7.1 % (4.6-6.2)
== END 2017-05-07 08:24 | disposition home or self-care (01) ==
LOC: LAB.WCP 08:23
PROVIDERS: ATTEND Family Medicine
DX: E11.42 Type 2 diabetes mellitus with diabetic polyneuropathy (principal); F20.9 Schizophrenia, unspecified; I10 Essential (primary) hypertension
CPT/HCPCS: 36415; 80053; 83036

== ENCOUNTER 2017-07-05 08:00 | Outpatient (CLI) | payer MEDICAID ==
[2017-07-05 19:48] LABS: BASOPHILS # (AUTO) 0.1 10^3/uL (0.0-0.1); EOSINOPHILS # (AUTO) 0.4 10^3/uL (0.0-0.7); HGB - HEMOGLOBIN 15.2 g/dL (14.0-18.0); LYMPHOCYTES # (AUTO) 2.2 10^3/uL (1.5-3.5); LYMPHOCYTES % (AUTO) 28.5 %; MEAN CORPUSCULAR HEMOGLOBIN 31.3 pg (27.0-31.0); MEAN PLATELET VOLUME 8.2 fL (7.4-11.4); MONOCYTES # (AUTO) 0.6 10^3/uL (0.0-1.0); MONOCYTES % (AUTO) 7.1 %; NEUTROPHILS # (AUTO) 4.6 10^3/uL (1.5-6.6); NEUTROPHILS % (AUTO) 58.4 %; PLT - PLATELET COUNT 256 10^3/uL (130-450); RED BLOOD COUNT 4.85 10^6/uL (4.70-6.10); RED CELL DISTRIBUTION WIDTH 14.6 % (12.0-15.0); WHITE BLOOD COUNT 7.9 x10^3/uL (4.8-10.8)
[2017-07-05 20:10] LABS: ALBUMIN 3.8 g/dL (3.2-5.5); ALBUMIN/GLOBULIN RATIO 1.2 (1.0-2.2); BILIRUBIN,TOTAL 0.3 mg/dL (0.2-1.0); CALCIUM 8.9 mg/dL (8.5-10.3)
== END 2017-07-05 08:01 | disposition home or self-care (01) ==
LOC: LAB.WCP 08:00
PROVIDERS: ATTEND Family Medicine
DX: R74.8 Abnormal levels of other serum enzymes (principal); E11.9 Type 2 diabetes mellitus without complications; I10 Essential (primary) hypertension
CPT/HCPCS: 36415; 80053; 85025

== ENCOUNTER 2017-07-17 15:35 | Outpatient (CLI) | payer OTHER, MEDICAID | END 2017-07-17 15:36 | disposition critical access hospital (66) | LOC: EMS 15:35 | PROVIDERS: ATTEND Surgery | DX: S39.91XA Unspecified injury of abdomen, initial encounter (principal); S49.92XA Unspecified injury of left shoulder and upper arm, initial encounter; Y92.413 State road as the place of occurrence of the external cause | CPT/HCPCS: A0425; A0429 ==

== ENCOUNTER 2017-07-17 15:45 | Emergency (ER) | payer OTHER, MEDICAID ==
[2017-07-17] MEDS ORDERED: TETANUS/DIPHTHERIA/PERTUSSIS 0.5 ML SYRINGE IM ONE (15:50)
[2017-07-17] MEDS ORDERED: SODIUM CHLORIDE 0.9% 1,000 ML IV ONE (15:50)
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
[2017-07-17 16:17] LABS: BASOPHILS # (AUTO) 0.1 10^3/uL (0.0-0.1); BASOPHILS % (AUTO) 0.5 %; EOSINOPHILS # (AUTO) 0.2 10^3/uL (0.0-0.7); EOSINOPHILS % (AUTO) 1.2 %; HGB - HEMOGLOBIN 17.3 g/dL (14.0-18.0); LYMPHOCYTES # (AUTO) 2.6 10^3/uL (1.5-3.5); LYMPHOCYTES % (AUTO) 17.4 %; MEAN CORPUSCULAR HEMOGLOBIN 30.8 pg (27.0-31.0); MEAN CORPUSCULAR HGB CONC 33.8 g/dL (32.0-36.0); MEAN CORPUSCULAR VOLUME 91.2 fL (80.0-94.0); MEAN PLATELET VOLUME 7.5 fL (7.4-11.4); MONOCYTES # (AUTO) 0.7 10^3/uL (0.0-1.0); MONOCYTES % (AUTO) 4.9 %; NEUTROPHILS # (AUTO) 11.4 10^3/uL (1.5-6.6); PLT - PLATELET COUNT 316 10^3/uL (130-450); RED CELL DISTRIBUTION WIDTH 14.2 % (12.0-15.0)
[2017-07-17] MEDS ORDERED: LORazepam 2 MG/ML VIAL IVP STA (16:26)
[2017-07-17] MEDS ORDERED: THIAMINE INJ 100 MG in SODIUM CHLORIDE 0.9% 50 ML IV STA (16:29)
[2017-07-17 16:33] LABS: ALBUMIN 4.4 g/dL (3.2-5.5); ALBUMIN/GLOBULIN RATIO 1.2 (1.0-2.2); ALKALINE PHOSPHATASE 101 IU/L (42-121); ALT ALANINE AMINOTRANSFERASE 95 IU/L (10-60); AST ASPARTATE AMINOTRANSFERASE 117 IU/L (10-42); BILIRUBIN,TOTAL 1.9 mg/dL (0.2-1.0); BUN - BLOOD UREA NITROGEN 23 mg/dL (6-20); CARBON DIOXIDE - CO2 21 mmol/L (21-32); CHLORIDE 99 mmol/L (101-111); CREATININE 1.2 mg/dL (0.6-1.2); GFR - MDRD 63 (>89); GLUCOSE 193 mg/dL (70-100); LIPASE 61 U/L (22-51); SALICYLATE < 6.0 mg/dL; SODIUM 135 mmol/L (135-145); TOTAL PROTEIN 8.2 g/dL (6.7-8.2)
[2017-07-17 16:40] LABS: ACETAMINOPHEN < 10 ug/mL (10-30)
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
--- NOTE | 2017-07-17 16:42 | XRAY Preliminary Report ---
Exam: XR CHEST 1 VIEW X-RAY IMPRESSION: No acute cardiopulmonary abnormality. [facility] SITE ID: [id number]
--- NOTE | 2017-07-17 16:43 | XRAY Preliminary Report ---
Exam: XR HAND 3 VIEW RT IMPRESSION: Old fifth metacarpal fracture deformity. No acute bony abnormality. [facility] SITE ID: [id number]
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
--- NOTE | 2017-07-17 17:27 | CT Preliminary Report ---
Exam: CT HEAD W/O IMPRESSION: 1. No acute intracranial abnormality. 2. No calvarial fracture. Large right parieto-occipital scalp hematoma. 3. Mild right maxillary sinus mucosal thickening. No air-fluid level. [facility] SITE ID: [id number]
[2017-07-17] MEDS ORDERED: IBUPROFEN 800 MG TABLET PO STA (17:31)
--- NOTE | 2017-07-17 17:35 | CT Preliminary Report ---
Exam: CT CERVICAL SPINE W/O IMPRESSION: 1. No fracture. No prevertebral soft tissue hematoma. 2. No scoliosis or spondylolisthesis. Reversal normal cervical lordosis of unclear significance is no rodríguez. 3. Mild C4-C5 and C5-C6 degenerative disk disease. Mild bilateral C5-C6 foraminal stenosis. [facility] SITE ID: [id number]
[2017-07-17] MEDS ORDERED: HYDROcod/ACETAM 5/325 MG TABLET PO STA (17:39)
--- NOTE | 2017-07-17 17:45 | CT Report ---
EXAM: CT HEAD EXAM DATE: 07/17/2017 05:05 PM. CLINICAL HISTORY: Head injury. COMPARISON: 04/16/2017. TECHNIQUE: Multiaxial CT images were obtained from the foramen magnum to the vertex. Reformats: Coron al. IV contrast: None. In accordance with CT protocol optimization, one or more of the following dose reduction techniques w ere utilized for this exam: automated exposure control, adjustment of mA and/or KV based on patient s ize, or use of iterative reconstructive technique. FINDINGS: Parenchyma: No intraparenchymal hemorrhage. No evidence of mass, midline shift, or CT findings of inf arction. Knott-white differentiation is distinct. Extraaxial Spaces: Normal for age. No subdural or epidural collections identified. Ventricles: Normal in size and position. Sinuses and Orbits: Mild mucosal thickening of the right maxillary sinus antrum. Otherwise, the image d paranasal sinuses, orbits, and mastoids show no significant abnormality. Bones: No evidence of fracture or calvarial defect. Other: Large right parieto-occipital scalp hematoma. Irregular shape makes accurate measurement diffi cult. At a minimum, the hematoma measures at least 7.9 x 1.4 x 9 cm on image 2, 24 and 5, 33. No unex pected radiopaque foreign bodies. IMPRESSION: 1. No acute intracranial abnormality. 2. No calvarial fracture. Large right parieto-occipital scalp hematoma. 3. Mild right maxillary sinus mucosal thickening. No air-fluid level. [facility] Referring Provider Line: [phone] SITE ID: [id number]
--- NOTE | 2017-07-17 18:11 | CT Report ---
EXAM: CT CERVICAL SPINE WITHOUT CONTRAST DATE: 07/17/2017 05:05 PM. HISTORY: Head injury. COMPARISONS: None. TECHNIQUE: Thin-section axial images were acquired of the cervical spine without contrast. Post-proce ssing: Coronal and sagittal reformats. Other: None. In accordance with CT protocol optimization, one or more of the following dose reduction techniques w ere utilized for this exam: automated exposure control, adjustment of mA and/or KV based on patient s ize, or use of iterative reconstructive technique. FINDINGS: Alignment: No spondylolisthesis is seen. No scoliosis identified. Reversal of the normal cervical lauren dosis is noted. Bones: No acute fracture. Mild superior endplate height loss at C4 and C5 may be developmental or ch ronic. Interspace Levels/Facets: C1-C2: Unremarkable. C2-C3: Unremarkable. C3-C4: Unremarkable. C4-C5: Mild disk narrowing with a prominent disk osteophyte complex. C5-C6: Mild disk narrowing. Small disk osteophyte complex and uncovertebral joint hypertrophy results in mild bilateral bony foraminal stenosis. C6-C7: Unremarkable. C7-T1: Unremarkable. Musculature: Normal. No fatty atrophy. Other: The paravertebral and prevertebral soft tissues are unremarkable. The lung apices are clear. L arge right occipital scalp hematoma better seen on head CT. No unexpected radiopaque foreign bodies a re noted. IMPRESSION: 1. No fracture. No prevertebral soft tissue hematoma. 2. No scoliosis or spondylolisthesis. Reversal of the normal cervical lordosis of unclear significanc e is noted. 3. Mild C4-C5 and C5-C6 degenerative disk disease. Mild bilateral C5-C6 foraminal stenosis. [facility] Referring Provider Line: [phone] SITE ID: [id number]
[2017-07-17 20:39] LABS: MUDS CUTOFF CONCENTRATIONS CUTOFF CONC BELOW:
[2017-07-17 20:53] LABS: AMPHETAMINE SCREEN,URINE NEGATIVE (NEGATIVE); BENZODIAZEPINES SCREEN, URINE POSITIVE (NEGATIVE); COCAINE SCREEN URINE NEGATIVE (NEGATIVE); METHADONE SCREEN, URINE NEGATIVE (NEGATIVE); METHAMPHETAMINES SCREEN, URINE NEGATIVE (NEGATIVE); OPIATE SCREEN, URINE NEGATIVE (NEGATIVE); OXYCODONE SCREEN, URINE NEGATIVE (NEGATIVE); PROPOXYPHENE SCREEN, URINE NEGATIVE (NEGATIVE); TRICYCLIC ANTIDEPRESSANT,URINE NEGATIVE (NEGATIVE)
[2017-07-17] MEDS ORDERED: OLANZapine ODT 5 MG TABLET TL STA (22:41)
--- NOTE | 2017-07-17 23:15 | ED Physician Documentation ---
ED Addendum - Addendum Addendum: 07/17/17 23:13 Patient was signed over to me from Dr. Wilder. patient was medically clear pending social work evaluation. While awaiting social work evaluation patient took out his IV and wanted to go. patient was delusional talking about his friend being there but no one was around. At this point patient became involuntary. patient was treated with zyprexa for agitation. [facility] was dispatched. patient was evaluated and it was decided that patient met inpatient criteria. Patient was accepted by Tay Torres at [facility] evaluation and treatment. Arrangements were made and patient was transferred in stable condition. 07/18/17 04:03 Departure - Departure Disposition: [facility]/Unit DC/Xfer Discharge Problem: Depression, Suicidal ideation Condition: Stable
[2017-07-18 09:57] VITALS: BP 141/83
== END 2017-07-18 09:59 ==
LOC: EDUNIT# → ED 15:45
DX: S60.511A Abrasion of right hand, initial encounter (principal); T14.91XA Suicide attempt, initial encounter; V03.10XA Pedestrian on foot injured in collision with car, pick-up truck or van in traffic accident, initial encounter; Y92.488 Other paved roadways as the place of occurrence of the external cause; Z23 Encounter for immunization; F20.1 Disorganized schizophrenia; F33.3 Major depressive disorder, recurrent, severe with psychotic symptoms; R45.851 Suicidal ideations; I10 Essential (primary) hypertension; K21.9 Gastro-esophageal reflux disease without esophagitis; E11.9 Type 2 diabetes mellitus without complications; Z79.84 Long term (current) use of oral hypoglycemic drugs
CPT/HCPCS: 36415; 70450; 71045; 72125; 73130; 80053; 80306; 80307; 80320; 80329; 83690; 85025; 90471; 90715; 93005; 96361; 96365; 96366; 96375; 99285; A9270; J2060; J3411; J7040; 99284